=== PATIENT | female | born 1990 | race Caucasian/White ===

== ENCOUNTER 2022-02-07 14:44 | Emergency (ER) | payer OTHER ==
[2022-02-07 15:55] LABS: HEMOGLOBIN 12.4 gm/dl (12.3-15.3); RED BLOOD COUNT 4.5 M/UL (4.00-5.10); WHITE BLOOD COUNT 8.1 K/UL (4.5-11.0)
[2022-02-07 16:24] LABS: BUN/CREATININE RATIO 17 (0-10)
== END 2022-02-07 17:51 | disposition home or self-care (01) ==
LOC: ER1 14:44
PROVIDERS: Emergency Medicine
DX: R20.2 Paresthesia of skin (principal); R20.0 Anesthesia of skin
CPT/HCPCS: 70450; 71045; 80053; 82550; 82553; 84484; 84703; 85025; 93005; 99284